=== PATIENT | female | born 1950 | race Caucasian/White ===

== ENCOUNTER 2019-04-24 08:29 | Day surgery (SDC) | payer OTHER ==
[2019-04-24] MEDS ORDERED: MIDAZOLAM 1 MG/ML 2 ML INJ ×2 (11:36)
[2019-04-24] MEDS ORDERED: FENTAnyl 50 MCG/ML VIAL (11:36)
== END 2019-04-24 17:50 | disposition home or self-care (01) ==
LOC: GIL 08:29
DX: K64.8 Other hemorrhoids (principal); D50.9 Iron deficiency anemia, unspecified; D12.2 Benign neoplasm of ascending colon; K21.9 Gastro-esophageal reflux disease without esophagitis
CPT/HCPCS: 43239; 88305; 88312